=== PATIENT | male | born 1945 | race Caucasian/White ===

== ENCOUNTER 2022-05-27 15:23 | Observation (INO) | payer MEDICARE ==
[~2022-05-27] VITALS: Ht 177.8 cm; Wt 80.0 kg
[2022-05-27 16:09] LABS: ARTERIAL BLD GAS O2 SATURATION 96.6 % (92-100); ARTERIAL BLD GAS TCO2 CT 22.2; ARTERIAL BLOOD GAS BASE EXCESS -0.2 (-2-2); ARTERIAL BLOOD GAS HCO3 21.4 meq/L (22-26); ARTERIAL BLOOD GAS PCO2 27.2 mmHg (35-45); ARTERIAL BLOOD GAS PO2 82.7 mmHg (80-100); ARTERIAL BLOOD GAS pH 7.51 (7.35-7.45)
[2022-05-27 16:19] LABS: BASO # 0.1 K/mm3 (0.0-0.2); BASO % 1.1 % (0.0-2.0); EOS # 0.5 K/mm3 (0.0-0.7); EOS % 6.1 % (0.0-4.0); GRAN # 4.2 K/mm3 (1.4-6.5); GRAN % 49.8 % (42.2-75.2); HEMATOCRIT 44.6 % (42.0-52.0); HEMOGLOBIN 14.7 g/dl (13.5-18.0); LYMPH # 2.8 K/mm3 (1.2-3.4); LYMPH % 33.1 % (20.0-51.0); MEAN CELL VOLUME 99 fl (80.0-100.0); MEAN CORPUSCULAR HEMOGLOBIN 33 pg (27-31); MEAN CORPUSCULAR HGB CONC 33 g/dl (33.0-37.0); MEAN PLATELET VOLUME 10.7 fl (7.4-10.4); MONO # 0.8 K/mm3 (0.1-0.6); MONO % 9.3 % (1.7-9.3); PLATELET COUNT 325 K/mm3 (130-400); RED BLOOD COUNT 4.49 M/mm3 (4.20-5.60); REDCELL DISTRIBUTION WIDTH-CV 12.9 % (11.5-14.5)
[2022-05-27 16:43] LABS: ALANINE AMINOTRANSFERASE 34 U/L (0-55); ALBUMIN 3.8 gm/dL (3.4-4.8); ALKALINE PHOSPHATASE 107 U/L (40-150); ANION GAP 15 mmol/L (7-16); AST,SGOT 24 U/L (5-34); BILIRUBIN,TOTAL 0.4 mg/dL (0.2-1.2); BLOOD UREA NITROGEN 22 mg/dL (8-26); CALCIUM 9.4 mg/dL (8.4-10.2); CARBON DIOXIDE 23 mmol/L (23-31); CHLORIDE 104 mmol/L (98-107); CREATININE, serum 1.44 mg/dL (0.72-1.25); GLUCOSE 110 mg/dL (70-99); POTASSIUM 4.4 mmol/L (3.5-4.5); SODIUM 142 mmol/L (136-145); TOTAL PROTEIN 7.6 gm/dL (6.2-8.1)
[2022-05-27 16:49] LABS: TROPONIN-I < 0.010 ng/mL (0.00-0.033)
[2022-05-27 17:39] LABS: COLLECTION METHOD CLEAN CATCH
[2022-05-27 17:55] LABS: PH 7 (5-8); SQUAMOUS EPITHELIAL None Seen /hpf (0-10); URINE APPEARANCE Clear (CLEAR/HAZY); URINE BACTERIA None Seen /hpf (NONE SEEN); URINE BILIRUBIN Negative (NEGATIVE); URINE BLOOD 2+ (NEGATIVE); URINE COLOR Yellow (YELLOW); URINE GLUCOSE Negative (NEGATIVE); URINE KETONE Negative (NEGATIVE); URINE LEUKOCYTE ESTERASE Negative (NEGATIVE); URINE NITRATE Negative (NEGATIVE); URINE PROTEIN(semi-quant) Negative (NEGATIVE); URINE RBC >50 /hpf (0-2); URINE UROBILINOGEN Negative (NEGATIVE)
[2022-05-27] MEDS ORDERED: TYLENOL 325MG325 MG PO (18:03)
[2022-05-27] MEDS ORDERED: DIPROLENE AF GEL15GM TP (18:05)
[2022-05-27] MEDS ORDERED: CORRECTIVE LAXAT5 MG PO (18:40)
[2022-05-27] MEDS ORDERED: DULCOLAX S10 MG/SUPP RC (18:40)
[2022-05-27] MEDS ORDERED: ZIAC 5/6.25MG T1 TAB PO (18:41)
[2022-05-27] MEDS ORDERED: PRINIVIL10 MG PO (18:42)
[2022-05-27] MEDS ORDERED: ZYRTEC 10MG10 MG PO (18:42)
[2022-05-27] MEDS ORDERED: ZOLOFT 25MG25 MG PO (18:43)
[2022-05-27] MEDS ORDERED: MIRALAX PA17 GM/Dose PO (18:43)
[2022-05-27] MEDS ORDERED: SYNTHROID 0.0.025 MG PO (18:45)
[2022-05-27] MEDS ORDERED: MULTIPLE VITAMI1 TA5 PO (18:46)
[2022-05-27] MEDS ORDERED: CERAVE DAILY M355 ML TP (18:47)
--- NOTE | 2022-05-27 21:00 | NUR ---
PT. TO ROOM 322 FROM ER FOR PNEMONIA. PT. ALERT AND ORIENTED TO SELF ONLY. PT. HAS AN INT TO LEFT HAND. NO SKIN CONDITIONS. PT. HAD PREVIOUSLY PULLED OUT AN IV TO THE LEFT AC. PT. WAS HELPED TO THE BATHROOM. PT HAS AN UNSTEADY GAIT. APPEARS TO BE IN NO ACUTE DISTRESS. BELONGS INCLUDING A WHEELCHAIR WITH PT IN ROOM. ORIENTED TO ROOM. CALL LIGHT IN REACH. BED ALARM ON. NO FURHTER NEEDS AT THIS TIME.
[2022-05-27 21:36] VITALS: BP 152/75; PULSE 52; TEMP 97.8
[2022-05-28] VITALS (7 sets, daily range): BP systolic 117–159; BP diastolic 56–85; PULSE 49–82; TEMP 97.6–98.9
--- NOTE | 2022-05-28 09:00 | NUR ---
PT IS ORIENTED TO PERSON AND IS CONFUSED. HAS A HX OF KNOWN DEMENTIA. PT REFUSED ULTRASOUND TEST THIS MORNING. REQUESTED MEDICATION TO HELP CALM PT. AM MEDS GIVEN AND ASSESSMENT COMPLETED. VS ARE STABLE. MOVED PT UP IN BED FOR BREAKFAST. NO OTHER NEEDS AT THIS TIME. CALL LIGHT WITHIN REACH.
[2022-05-28 10:27] LABS: BASO # 0.1 K/mm3 (0.0-0.2); BASO % 1.2 % (0.0-2.0); EOS # 0.6 K/mm3 (0.0-0.7); GRAN # 5.3 K/mm3 (1.4-6.5); GRAN % 62.4 % (42.2-75.2); HEMATOCRIT 44.3 % (42.0-52.0); HEMOGLOBIN 14.8 g/dl (13.5-18.0); LYMPH % 22.8 % (20.0-51.0); MEAN CELL VOLUME 98 fl (80.0-100.0); MEAN CORPUSCULAR HEMOGLOBIN 33 pg (27-31); MEAN CORPUSCULAR HGB CONC 33 g/dl (33.0-37.0); MEAN PLATELET VOLUME 10.3 fl (7.4-10.4); MONO # 0.5 K/mm3 (0.1-0.6); MONO % 6.1 % (1.7-9.3); PLATELET COUNT 353 K/mm3 (130-400); RED BLOOD COUNT 4.52 M/mm3 (4.20-5.60); REDCELL DISTRIBUTION WIDTH-CV 12.8 % (11.5-14.5)
[2022-05-28 10:42] LABS: ALBUMIN 3.7 gm/dL (3.4-4.8); CALCIUM 9.3 mg/dL (8.4-10.2); CREATININE, serum 1.41 mg/dL (0.72-1.25); MAGNESIUM 1.8 mg/dL (1.6-2.6); PHOSPHOROUS 2.6 mg/dL (2.3-4.7)
--- NOTE | 2022-05-28 11:00 | NUR ---
PT INCONTINENT OF BOWEL AND HAS BEEN CLEANED UP. BROTHER IN TO VISIT WITH PT. NO OTHER NEEDS AT THIS TIME. CALL LIGHT WITHIN REACH.
--- NOTE | 2022-05-28 12:35 | NUR ---
PATIENT TRANSFERING INTO ROOM 325 TO BE CLOSER TO DESK DUE TO HIGH FALL RISK.
--- NOTE | 2022-05-28 14:44 | NUR ---
Welcome Wagon Host/Hostess contacted Zohra at [facility] and faxed clinical updates. STACEY requested copy of DPOA-HC, which Zohra faxed to the surgical floor. STACEY placed it in chart. BrotherAmerico (ph#[phone]) is DPOA-HC. STACEY contacted patient's brother, Americo to complete intake as patient is not alert and oriented. Americo advised patient is a resident of [facility] and will return there at time of discharge. Patient sees Dr. Oropeza for primary care. STACEY advised Americo that she would coordinate with [facility] at time of discharge. Americo had no questions or concerns at this time. Discharge Plan: [facility]
--- NOTE | 2022-05-28 17:33 | NUR ---
PT SITTING UP IN BED EATING DINNER. CALL LIGHT WITHIN REACH.
--- NOTE | 2022-05-28 19:10 | NUR ---
PATIENT FOUND TO HAVE PULLED LEFT HAND IV WHILE IV ABX INFUSING. RESTARTED 22 GAUGE IV INTO LEFT FORARM AND IV ABX RESUMED. REPORT GIVEN TO [employer]GEANT RN.
--- NOTE | 2022-05-28 19:42 | NUR ---
ASSESSMENT COMPLETE. PT. SITTING IN BED. ALERT BUT ONLY ORIENTED TO PERSON. APPEARS TO BE IN NO ACUTE DISTRESS. ANTIBIOTICS INFUSING TO LEFT FOREARM. TELE IN PLACE. CALL LIGHT IN REACH. WILL CONTINUE TO MONITOR.
--- NOTE | 2022-05-29 00:13 | NUR ---
PT. BECAME AGIGIATED AND STARTED HITTING THE NURSING AIDS WHEN THEY WERE CLEANING UP INCONTIENCE EPISODE. OLANZAPINE INJECTION WAS GIVEN PER ORDER.
[2022-05-29 03:48] VITALS: BP 151/86; PULSE 61
[2022-05-29 05:59] LABS: BASO # 0.1 K/mm3 (0.0-0.2); BASO % 1.2 % (0.0-2.0); EOS # 0.8 K/mm3 (0.0-0.7); EOS % 7.6 % (0.0-4.0); GRAN # 6.4 K/mm3 (1.4-6.5); GRAN % 59.6 % (42.2-75.2); HEMOGLOBIN 14.3 g/dl (13.5-18.0); LYMPH # 2.6 K/mm3 (1.2-3.4); MEAN CELL VOLUME 97 fl (80.0-100.0); MEAN CORPUSCULAR HEMOGLOBIN 32 pg (27-31); MEAN CORPUSCULAR HGB CONC 33 g/dl (33.0-37.0); MEAN PLATELET VOLUME 10.4 fl (7.4-10.4); MONO # 0.8 K/mm3 (0.1-0.6); MONO % 7.2 % (1.7-9.3); PLATELET COUNT 371 K/mm3 (130-400); RED BLOOD COUNT 4.44 M/mm3 (4.20-5.60); REDCELL DISTRIBUTION WIDTH-CV 12.6 % (11.5-14.5)
[2022-05-29 06:23] LABS: ALBUMIN 3.6 gm/dL (3.4-4.8); CALCIUM 9.3 mg/dL (8.4-10.2); CREATININE, serum 1.3 mg/dL (0.72-1.25); MAGNESIUM 1.8 mg/dL (1.6-2.6); PHOSPHOROUS 2.7 mg/dL (2.3-4.7); POTASSIUM 3.9 mmol/L (3.5-4.5)
[2022-05-29 08:16] VITALS: BP 133/72; PULSE 75; TEMP 97.8
--- NOTE | 2022-05-29 09:00 | NUR ---
AT BEDSIDE. PATIENT MEDICALLY CLEARED TO GO BACK TO [place] WHERE HE LIVES. IV ABX CHANGED TO ORAL. SEE DISCHARGE ORDERS. PARTNER NOTIFIED TO MAKE DISCHARGE ARRANGMENTS.
[2022-05-29] MEDS ORDERED: MONODOX100 PO (09:17)
[2022-05-29] MEDS ORDERED: IPRATROPIUM BROM3 M1 IH (09:19)
--- NOTE | 2022-05-29 10:45 | NUR ---
PATIENT DISCHARGING BACK TO [place] WHERE HE LIVES, SEE ORDERS. DC'D TELE. DC'D LEFT FORARM IV AND COVERED SITE WITH GAUZE. PATIENT 2 ASSIST TO GET DRESSED. INFO PACKET GIVEN TO IRON CARRIER. CALLED REPORT TO NURSE AT [place]. PATIENT DISCHARGED.
--- NOTE | 2022-05-29 16:42 | NUR ---
SW informed that patient would be discharged back to [facility]. SW contacted facility to inform of information. Facility stated they would pick patient up on this day around 1015am. SW informed nursing staff and documentation faxed to facility. Nothing futher.
== END 2022-05-29 10:45 ==
LOC: COL.ER 15:23 → SURG 17:03
PROVIDERS: Nurse Practitioner Primary Care; ADMIT Internal Medicine
DX: R53.81 Other malaise (principal); R45.1 Restlessness and agitation; R41.0 Disorientation, unspecified; E03.9 Hypothyroidism, unspecified; I10 Essential (primary) hypertension; I12.9 Hypertensive chronic kidney disease with stage 1 through stage 4 chronic kidney disease, or unspecified chronic kidney disease; N18.30 Chronic kidney disease, stage 3 unspecified; R74.02 Elevation of levels of lactic acid dehydrogenase [LDH]; Z20.822 Contact with and (suspected) exposure to COVID-19; W19.XXXA Unspecified fall, initial encounter; Y93.9 Activity, unspecified; Y92.129 Unspecified place in nursing home as the place of occurrence of the external cause; Z79.890 Hormone replacement therapy; Z79.899 Other long term (current) drug therapy
CPT/HCPCS: G0378; J2060; J2543; J7030